=== PATIENT | female | born 1965 | race Caucasian/White ===

== ENCOUNTER → 2024-03-07 12:48 | Outpatient (REF) | payer BC, SELFPAY | LOC: RCS 12:48 | PROVIDERS: ATTENDING PHYSICIAN Internal Medicine; FAMILY PHYSICIAN Family Medicine | DX: R07.89 Other chest pain (principal); E78.00 Pure hypercholesterolemia, unspecified | CPT/HCPCS: 93017 ==

== ENCOUNTER → 2024-06-22 10:07 | Outpatient (REF) | payer SELFPAY | LOC: RAD 10:07 | PROVIDERS: ATTENDING PHYSICIAN Internal Medicine; FAMILY PHYSICIAN Family Medicine | DX: R07.89 Other chest pain (principal); E78.00 Pure hypercholesterolemia, unspecified | CPT/HCPCS: 75571 ==

== ENCOUNTER → 2024-07-12 15:05 | Outpatient (REF) | payer BC, SELFPAY | LOC: HWWDC 15:05 | PROVIDERS: ATTENDING PHYSICIAN Obstetrics & Gynecology; FAMILY PHYSICIAN Family Medicine | DX: Z12.31 Encounter for screening mammogram for malignant neoplasm of breast (principal) | CPT/HCPCS: 77063; 77067 ==

== ENCOUNTER → 2024-07-28 10:37 | Outpatient (REF) | payer BC, SELFPAY | LOC: DHSLP 10:37 | PROVIDERS: ATTENDING PHYSICIAN Family Medicine | DX: G47.30 Sleep apnea, unspecified (principal); F51.01 Primary insomnia; R06.83 Snoring | CPT/HCPCS: 95806 ==